=== PATIENT | male | born 1930 | race Caucasian/White ===

== ENCOUNTER 2016-11-11 16:50 | Inpatient (IN) | payer OTHER ==
[~2016-11-11] VITALS: Ht 170.2 cm; Wt 83.5 kg
[~2016-11-11 16:50] MED LIST: Aspirin E.C. PO; BICALUTAMIDE50 MG PO; CALCIUM 500 +1 EACH PO; CIPRO500 MG PO; FLOMAX0.4 MG PO; HYDROCHLOROTH12.5 M3 PO; Hydrodiuril,Oretic,E PO; JALYN 0.5-0.41 EACH PO; LO-DOSE ASPIRIN81 M2 PO; LUPRON DEPOT45 MG IM; Lopressor PO; NORCO 5/3251 TABLET PO; OMEGA-31000 M1 PO; VESICARE5 MG PO; VITAMIN C1000 MG PO; ZITHROMAX Z-PA250 MG PO; Zocor PO
[2016-11-11 17:41] LABS: EOSINOPHIL (%) 0.1 % (0-5); HEMATOCRIT 38.6 % (38.0-50.0); IMMATURE GRANULOCYTE (%) 0.1 % (0.0-0.7); IMMATURE GRANULOCYTE COUNT 0.1 K/uL; MCH 34.1 PG (29.0-34.0); MCHC 36.5 G/DL (30.0-36.0); MCV 93.2 FL (86-99); MEAN PLAT.VOLUME 9.1 uM^3 (9.0-12.4); MONOCYTE (%) 4.4 % (3-12); MONOCYTE COUNT 0.4 K/uL (0-0.8); NEUTROPHIL (%) 85.5 % (45-76); NEUTROPHIL COUNT 8.3 K/uL (1.8-6.4); PLATELET COUNT 196 K/uL (156-360); RBC DIS.WIDTH-CV 11.9 % (11.8-14.6); RBC DIS.WIDTH-SD 39.4 % (39-53); RED BLOOD COUNT 4.14 M/uL (4.00-5.50); WHITE BLOOD COUNT 9.7 K/uL (4.1-10.2)
[2016-11-11 17:52] LABS: PROTHROMBIN TIME 10.1 (9.2-11.2); PTT 24.5 (25-32)
[2016-11-11 17:57] LABS: CHLORIDE 101 mEq/L (99-109); POTASSIUM 4.3 mEq/L (3.7-5.4); SODIUM 135 mEq/L (136-147)
[2016-11-11 17:59] LABS: GLUCOSE 110 mg/dL (70-99)
[2016-11-11 18:00] LABS: ANION GAP 13 MEQ/L (2-14)
[2016-11-11 18:03] LABS: GFR ESTIMATE (CALCULATED) > 59 mL/min/; UREA NITROGEN (BUN) 11 mg/dL (9-23)
[2016-11-11] MEDS ORDERED: LO-DOSE ASPIRIN81 M1 PO (18:36)
[2016-11-11] MEDS ORDERED: MYRBETRIQ50 MG PO (18:36)
[2016-11-11] MEDS ORDERED: COZAAR25 MG PO (18:36)
[2016-11-11] MEDS ORDERED: NITROGLYCERIN0.4 MG SL (18:38)
[2016-11-11 18:41] LABS: Estimated Average Glucose 88 mg/dL (70-123); HEMOGLOBIN A1c (GLYCOHEMOGLOB) 4.7 % HGB (Below 5.7)
[2016-11-11 18:44] LABS: HDL CHOLESTEROL 79 MG/DL (Desirable>=40); LDL CHOLESTEROL 131 mg/dL (Desirable<100); NON-HDL CHOLESTEROL 143 mg/dL (Desirable<160); TOTAL CHOLESTEROL 222 mg/dL (Desirable<200); TRIGLYCERIDES 58 MG/DL (Normal: <150)
[2016-11-11 20:36] LABS: ADD MIUA? YES; BILIRUBIN NEGATIVE; BLOOD SMALL; COLOR YELLOW ((YELLOW)); GLUCOSE (STRIP) NEGATIVE; KETONES NEGATIVE; LEUKOCYTES NEGATIVE; NITRITE NEGATIVE; PROTEIN (STRIP) NEGATIVE; SPECIFIC GRAVITY 1.028 (1.000-1.030); UROBILINOGEN 0.2 MG/DL (0.2-1.0)
[2016-11-11 20:45] LABS: BACTERIA NONE SEEN; CASTS NONE SEEN /LPF; CRYSTALS NONE SEEN; EPITHELIAL CELLS RARE; MUCUS NONE SEEN; PATHOLOGICAL CAST NONE SEEN; RED BLOOD CELLS 0-5 /HPF (0-5); SMALL ROUND CELL NONE SEEN; UCUL ADDED? NO; WHITE BLOOD CELLS 0-5 /HPF (0-5); YEAST-LIKE CELL NONE SEEN
[2016-11-12] VITALS (7 sets, daily range): BP systolic 112–163; BP diastolic 75–79
[2016-11-12 00:02] LABS: INFLUENZA A VIRAL ANTIGEN NEGATIVE; INFLUENZA B VIRAL ANTIGEN NEGATIVE
[2016-11-12 07:33] LABS: MCH 33.7 PG (29.0-34.0); MCHC 35.6 G/DL (30.0-36.0); MCV 94.7 FL (86-99); MEAN PLAT.VOLUME 9.8 uM^3 (9.0-12.4); PLATELET COUNT 162 K/uL (156-360); RBC DIS.WIDTH-CV 12.2 % (11.8-14.6); RED BLOOD COUNT 3.59 M/uL (4.00-5.50)
[2016-11-12 07:37] LABS: WHITE BLOOD COUNT 6.1 K/uL (4.1-10.2)
[2016-11-13 04:00] VITALS: BP 126/76
[2016-11-13 07:03] LABS: HEMATOCRIT 33.1 % (38.0-50.0); MCH 33.1 PG (29.0-34.0); MCHC 34.7 G/DL (30.0-36.0); MCV 95.4 FL (86-99); PLATELET COUNT 154 K/uL (156-360); RBC DIS.WIDTH-CV 12.4 % (11.8-14.6); RBC DIS.WIDTH-SD 42.9 % (39-53); RED BLOOD COUNT 3.47 M/uL (4.00-5.50); WHITE BLOOD COUNT 5.2 K/uL (4.1-10.2)
[2016-11-13 07:34] LABS: ANION GAP 7 MEQ/L (2-14); CHLORIDE 105 MEQ/L (99-109); GFR ESTIMATE (CALCULATED) > 59 mL/min/; GLUCOSE 90 mg/dL (70-99); SAMPLE HEMOLYSIS CHECK 0; SAMPLE ICTERIC CHECK 0; SAMPLE LIPEMIA CHECK 0; SODIUM 137 MEQ/L (136-147); UREA NITROGEN (BUN) 19 mg/dL (9-23)
[2016-11-13 08:30] VITALS: BP 149/95
[2016-11-13] MEDS ORDERED: ATORVASTATIN CA40 MG PO (10:51)
== END 2016-11-13 12:09 | disposition home or self-care (01) | DRG 69 ==
LOC: EME → EDSEX 16:50 → EDBD 16:50 → EDOF 23:33 → 5SOUTH 23:33
PROVIDERS: Emergency Medicine; Hospitalist; Physician Assistant Medical
DX: G45.8 Other transient cerebral ischemic attacks and related syndromes (principal); G93.41 Metabolic encephalopathy; F05 Delirium due to known physiological condition; I10 Essential (primary) hypertension; E11.9 Type 2 diabetes mellitus without complications; E78.2 Mixed hyperlipidemia; R32 Unspecified urinary incontinence; J45.909 Unspecified asthma, uncomplicated; F10.10 Alcohol abuse, uncomplicated; C61 Malignant neoplasm of prostate; I51.9 Heart disease, unspecified; M62.81 Muscle weakness (generalized); Z86.73 Personal history of transient ischemic attack (TIA), and cerebral infarction without residual deficits; Z87.891 Personal history of nicotine dependence; Z79.82 Long term (current) use of aspirin
CPT/HCPCS: 70450; 70496; 70498; 70551; 71010; 80048; 80061; 81003; 82948; 83036; 83605; 83735; 85025; 85027; 85610; 85730; 87040; 87502; 92523 GN; 93005; 97532 GN; 99281; 99285; J0696; J1630; J1644; J2060; J3370; J7030; J7050

== ENCOUNTER → 2017-04-13 | Outpatient (CLI) | payer OTHER ==
[~2017-04-13] MED LIST changes: +ATORVASTATIN CA40 MG PO; +COZAAR25 MG PO; +LO-DOSE ASPIRIN81 M1 PO; +MYRBETRIQ50 MG PO; +NITROGLYCERIN0.4 MG SL
== END | disposition home or self-care (01) ==
LOC: NUC 10:44
DX: C79.51 Secondary malignant neoplasm of bone (principal); M89.8X0 Other specified disorders of bone, multiple sites; C61 Malignant neoplasm of prostate
CPT/HCPCS: 78306; A9503

== ENCOUNTER 2017-12-24 13:21 | Emergency (ER) | payer OTHER ==
[~2017-12-24] VITALS: Ht 172.7 cm; Wt 84.1 kg
[2017-12-24 15:35] LABS: BASOPHIL (%) 0.3 % (0-1); EOSINOPHIL (%) 0.2 % (0-5); HEMATOCRIT 35.3 % (38.0-50.0); HEMOGLOBIN 12.8 G/DL (12.5-16.6); IMMATURE GRANULOCYTE (%) 0.3 % (0.0-0.7); LYMPHOCYTE (%) 17.6 % (15-42); MCH 33.8 PG (29.0-34.0); MCHC 36.3 G/DL (30.0-36.0); MCV 93.1 FL (86-99); MONOCYTE (%) 9.8 % (3-12); MONOCYTE COUNT 0.6 K/uL (0-0.8); NEUTROPHIL (%) 71.8 % (45-76); NEUTROPHIL COUNT 4.2 K/uL (1.8-6.4); PLATELET COUNT 198 K/uL (156-360); RBC DIS.WIDTH-CV 11.9 % (11.8-14.6); RBC DIS.WIDTH-SD 40.4 % (39-53); RED BLOOD COUNT 3.79 M/uL (4.00-5.50); WHITE BLOOD COUNT 5.8 K/uL (4.1-10.2)
[2017-12-24 15:50] LABS: CHLORIDE 100 mEq/L (99-109); POTASSIUM 3.9 mEq/L (3.7-5.4); SODIUM 130 mEq/L (136-147)
[2017-12-24 15:51] LABS: GLUCOSE 93 mg/dL (70-99)
[2017-12-24 15:55] LABS: CREATININE 0.8 mg/dL (0.6-1.3); GFR ESTIMATE (CALCULATED) > 59 mL/min/ (58.99-99999)
[2017-12-24 15:56] LABS: UREA NITROGEN (BUN) 16 mg/dL (9-23)
[2017-12-24 19:00] VITALS: BP 149/86
== END 2017-12-24 19:01 | disposition home or self-care (01) ==
LOC: EME 13:21
PROVIDERS: Emergency Medicine
DX: S00.93XA Contusion of unspecified part of head, initial encounter (principal); S40.019A Contusion of unspecified shoulder, initial encounter; I10 Essential (primary) hypertension; W18.30XA Fall on same level, unspecified, initial encounter; Y92.008 Other place in unspecified non-institutional (private) residence as the place of occurrence of the external cause; J45.909 Unspecified asthma, uncomplicated; E78.5 Hyperlipidemia, unspecified; Z87.891 Personal history of nicotine dependence; Z85.46 Personal history of malignant neoplasm of prostate; Z85.830 Personal history of malignant neoplasm of bone; Z79.82 Long term (current) use of aspirin
CPT/HCPCS: 70450; 71045; 73030; 80048; 85025; 99281; 99285; J2270; J3010